=== PATIENT | female | born 1990 | race Caucasian/White ===

== ENCOUNTER 2018-05-22 22:07 | Inpatient (IN) | payer MEDICAID ==
[~2018-05-22 22:07] MED LIST: Bupivacaine 0.25% 10 ML SDV ONE; Lidocaine 1.5% with EPINEPHrine 1:200,000 5 ML Amp ONE
[2018-05-22] MEDS ORDERED: Ondansetron 4 MG/2 ML SDV IVPUSH PRN (22:59)
[2018-05-22] MEDS ORDERED: Nalbuphine 20 MG/ML 1 ML Syringe IVPUSH PRN (22:59)
[2018-05-22] MEDS ORDERED: Ampicillin 2 GM in Sodium Chloride 0.9% 100 ML IV ONE (22:59)
[2018-05-22] MEDS ORDERED: Sodium Chloride 0.9% 10 ML Syringe FLUSH PRN (22:59)
[2018-05-23] MEDS: Ampicillin 1 GM in Sodium Chloride 0.9% 100 ML IV SCH ×2 (03:05→11:29)
[2018-05-23] MEDS: Lactated Ringers 1,000 ML IV SCH ×4 (03:06→10:26)
[2018-05-23] MEDS ORDERED: diphenhydrAMINE 50 MG/ML SDV IVPUSH PRN (03:43)
[2018-05-23] MEDS ORDERED: fentaNYL/Bupivacaine-NS 2 MCG/ML-0.125%/PF 100 ML Bag EPIDUR ONE (03:43)
[2018-05-23] MEDS ORDERED: fentaNYL 100 MCG/2 ML SDV EPIDUR PRN (03:43)
[2018-05-23] MEDS: ePHEDrine 50 MG/ML SDV IVPUSH PRN ×4 (04:29→04:49)
--- NOTE | 2018-05-23 04:47 | PCM.PREANE ---
Preanesthetic Assessment - Anesthesia/Transfusion/Family Hx Anesthesia History: Prior Anesthesia Without Reaction Type of Anesthesia Reaction: Unknown Family History of Anesthesia Reaction: No Transfusion History: No Prior Transfusion(s) Intubation History: Unknown - Review of Systems General: No Symptoms Pulmonary: No Symptoms Cardiovascular: No Symptoms Gastrointestinal: No Symptoms Neurological: No Symptoms Other: Reports: None - Physical Assessment NPO Status Date: 05/22/18 NPO Status Time: 11:00 Pulse: 82 O2 Sat by Pulse Oximetry: 98 Height: 1.73 m Weight: 97.522 kg - Lab Values: Laboratory Last Values WBC 8.95 K/mm3 (3.98-10.04) 05/22/18 23:20 RBC 4.10 M/mm3 (3.98-5.22) 05/22/18 23:20 Hgb 11.0 gm/L (11.2-15.7) L 05/22/18 23:20 Hct 33.6 % (34.1-44.9) L 05/22/18 23:20 MCV 82.0 fl (79.4-94.8) 05/22/18 23:20 MCH 26.8 pg (25.6-32.2) 05/22/18 23:20 MCHC 32.7 g/dl (32.2-35.5) 05/22/18 23:20 RDW Std Deviation 39.0 fL (36.4-46.3) 05/22/18 23:20 Plt Count 249 K/mm3 (182-369) 05/22/18 23:20 MPV 10.8 fl (9.4-12.3) 05/22/18 23:20 Neut % (Auto) 77.5 % (34.0-71.1) H 05/22/18 23:20 Lymph % (Auto) 15.3 % (19.3-51.7) L 05/22/18 23:20 [place] % (Auto) 6.4 % (4.7-12.5) 05/22/18 23:20 Eos % (Auto) 0.3 (0.7-5.8) L 05/22/18 23:20 Baso % (Auto) 0.1 % (0.1-1.2) 05/22/18 23:20 Neut # (Auto) 6.93 K/mm3 (1.56-6.13) H 05/22/18 23:20 Lymph # (Auto) 1.37 K/mm3 (1.18-3.74) 05/22/18 23:20 [place]inger # (Auto) 0.57 K/mm3 (0.24-0.36) H 05/22/18 23:20 Eos # (Auto) 0.03 K/mm3 (0.04-0.36) L 05/22/18 23:20 Baso # (Auto) 0.01 K/mm3 (0.01-0.08) 05/22/18 23:20 - Allergies Allergies/Adverse Reactions: Allergies Allergy/AdvReac Type Severity Reaction Status Date / Time No Known Allergies Allergy Verified 05/22/18 22:18 PreAnesthesia Questionnaire - Past Health History Medical/Surgical History: Denies 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: - Past Surgical History HEENT Surgical History: Reports: None Cardiovascular Surgical History: Reports: None Respiratory Surgical History: Reports: None GI Surgical History: Reports: None Female Surgical History: Reports: None Male Surgical History: Reports: None Endocrine Surgical History: Reports: None Neurological Surgical History: Reports: None Musculoskeletal Surgical History: Reports: None Oncologic Surgical History: Reports: None Dermatological Surgical History: Reports: None - SUBSTANCE USE Smoking Status *Q: Former Smoker Tobacco Use Within Last Twelve Months: Cigarettes Second Hand Smoke Exposure: No Recreational Drug Use History: No - HOME MEDS Home Medications: Home Meds . [No Known Home Meds] 05/23/18 [History] - CURRENT (IN HOUSE) MEDS Current Meds: Current Medications Diphenhydramine HCl (Benadryl) 25 mg IVPUSH Q6H PRN PRN Reason: Pruritis Ephedrine Sulfate (Ephedrine Sulfate) 5 mg IVPUSH ONETIME PRN PRN Reason: Hypotension Fentanyl (Sublimaze) 100 mcg EPIDUR Q3H PRN PRN Reason: Pain Lactated Ringer's (Ringers, Lactated) 1,000 mls @ 100 mls/hr IV ASDIRECTED [facility] Last Admin: 05/23/18 03:06 Dose: 100 mls/hr Ampicillin Sodium 1 gm/ Sodium (Chloride) 100 mls @ 200 mls/hr IV Q4H [facility] Last Admin: 05/23/18 03:05 Dose: 200 mls/hr Oxytocin/Lactated Ringer's (Pitocin In Lr 10 Units/1,000 Ml) 10 unit in 1,000 mls @ 500 mls/hr IV .CONTINUOUS [facility] Nalbuphine HCl (Nubain) 10 mg IVPUSH Q2H PRN PRN Reason: pain Ondansetron HCl (Zofran) 4 mg IVPUSH Q4H PRN PRN Reason: Nausea/Vomiting Sodium Chloride (Saline Flush) 10 ml FLUSH ASDIRECTED PRN PRN Reason: Keep Vein Open Discontinued Medications Fentanyl/Bupivacaine HCl (Yhymhdmp-Znpfn-Ij 2 Mcg/Ml-0.125%) 100 ml EPIDUR ONETIME ONE Stop: 05/23/18 03:44 Ampicillin Sodium 2 gm/ Sodium (Chloride) 100 mls @ 200 mls/hr IV ONETIME ONE Stop: 05/22/18 23:28 Last Admin: 05/23/18 00:10 Dose: 200 mls/hr
--- NOTE | 2018-05-23 05:11 | PCM.POSTAN ---
POST ANESTHESIA ASSESSMENT - RESPIRATORY Respiratory Status: Respiratory Rate WNL - CARDIOVASCULAR CV Status: Low Blood Pressure - GASTROINTESTINAL GI Status: [place] - POST OP HYDRATION Hydration Status: Adequate & Stable
[2018-05-23] MEDS: Oxytocin/Lactated Ringers 10 UNIT/1,000 ML BAG IV SCH ×2 (06:25→08:25)
--- NOTE | 2018-05-23 06:46 | PCM.HP ---
H&P History of Present Illness - General Date of Service: 05/22/18 Admit Problem/Dx: Admission Diagnosis/Problem Admission Diagnosis/Problem Source of Information: Patient - History of Present Illness Initial Comments - Free Text/Narative: 27 year old at 36w6d presents in labor. SROM shortly after arrival. History of prior deliveries. Improves with: Reports: None Worsens with: Reports: None Associated Symptoms: Reports: No Other Symptoms - Related Data Allergies/Adverse Reactions: Allergies Allergy/AdvReac Type Severity Reaction Status Date / Time No Known Allergies Allergy Verified 05/22/18 22:18 Home Medications: Home Meds . 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: - Past Surgical History HEENT Surgical History: Reports: None Cardiovascular Surgical History: Reports: None Respiratory Surgical History: Reports: None GI Surgical History: Reports: None Female Surgical History: Reports: None Male Surgical History: Reports: None Endocrine Surgical History: Reports: None Neurological Surgical History: Reports: None Musculoskeletal Surgical History: Reports: None Oncologic Surgical History: Reports: None Dermatological Surgical History: Reports: None Social & Family History - Family History Family Medical History: Noncontributory - Tobacco Use Smoking Status *Q: Former Smoker Years of Tobacco use: 3 Packs/Tins Daily: 0.5 Used Tobacco, but Quit: Yes Month/Year Tobacco Last Used: 11/2017 Second Hand Smoke Exposure: No - Recreational Drug Use Recreational Drug Use: No H&P Review of Systems - Review of Systems: Review Of Systems: See Below General: Reports: No Symptoms HEENT: Reports: No Symptoms Pulmonary: Reports: No Symptoms Cardiovascular: Reports: No Symptoms Gastrointestinal: Reports: No Symptoms Genitourinary: Reports: No Symptoms Musculoskeletal: Reports: No Symptoms Skin: Reports: No Symptoms Psychiatric: Reports: No Symptoms Neurological: Reports: No Symptoms Hematologic/Lymphatic: Reports: No Symptoms Immunologic: Reports: No Symptoms Exam - Exam Exam: See Below - Vital Signs Vital Signs: Last Vital Signs Temp Pulse 82 05/23/18 04:47 Resp BP Pulse Ox 98 05/23/18 04:47 Weight: 97.522 kg - Exam General: Alert, Oriented, 4 HEENT: PERRLA, Hearing Intact, Mucosa Moist & [place], Nares Patent, Normal Nasal Septum, Posterior Pharynx Clear, Conjunctiva Clear, EOMI, EACs Clear, TMs Clear Neck: Supple, Trachea Midline, 2 Lungs: Clear to Auscultation, Normal Respiratory Effort Cardiovascular: Regular Rate, Regular Rhythm GI/Abdominal Exam: Normal Bowel Sounds, Soft, Non-Tender, No Organomegaly, No Distention, No Abnormal Bruit, No Mass, Pelvis Stable Back Exam: Normal Inspection, Full Range of Motion, NT Extremities: Normal Inspection, Normal Range of Motion, Non-Tender, No Pedal Edema, Normal Capillary Refill Skin: Warm, Dry, Intact Neurological: Cranial Nerves Intact, Reflexes Equal Bilateral Neuro Extensive - Mental Status: Alert, Oriented x3, Normal Mood/Affect, Normal Cognition Neuro Extensive - Motor, Sensory, Reflexes: CN II-XII Intact, Normal Gait, Normal Reflexes Psychiatric: Alert, Normal Affect, Normal Mood - Patient Data Lab Results Last 24 hrs: Laboratory Results - last 24 hr 05/22/18 Range/Units 23:20 WBC 8.95 (3.98-10.04) K/mm3 RBC 4.10 (3.98-5.22) M/mm3 Hgb 11.0 L (11.2-15.7) gm/L Hct 33.6 L (34.1-44.9) % MCV 82.0 (79.4-94.8) fl MCH 26.8 (25.6-32.2) pg MCHC 32.7 (32.2-35.5) g/dl RDW Std Deviation 39.0 (36.4-46.3) fL Plt Count 249 (182-369) K/mm3 MPV 10.8 (9.4-12.3) fl Neut % (Auto) 77.5 H (34.0-71.1) % Lymph % (Auto) 15.3 L (19.3-51.7) % Moore % (Auto) 6.4 (4.7-12.5) % Eos % (Auto) 0.3 L (0.7-5.8) Baso % (Auto) 0.1 (0.1-1.2) % Neut # (Auto) 6.93 H (1.56-6.13) K/mm3 Lymph # (Auto) 1.37 (1.18-3.74) K/mm3 Moore # (Auto) 0.57 H (0.24-0.36) K/mm3 Eos # (Auto) 0.03 L (0.04-0.36) K/mm3 Baso # (Auto) 0.01 (0.01-0.08) K/mm3 Result Diagrams: 05/22/18 23:20 Problem List Initiated/Reviewed/Updated: Yes Orders Last 24hrs: Active Orders 24 hr Category Date Time Status Patient Status [ADT] Routine ADT 05/22/18 22:59 Active Activity as Tolerated [RC] PFP Care 05/22/18 22:59 Active Bradycardia-Neuroaxis [facility] [RC] ROUTINE Care 05/23/18 05:08 Active Communication Order [RC] ASDIRECTED Care 05/22/18 22:59 Active Non Stress Test [RC] PER UNIT ROUTINE Care 05/22/18 22:18 Active Hypertension-Neuroaxis [employer] [RC] ROUTINE Care 05/23/18 05:08 Active Hypotension-Neuroaxis [employer] [RC] ROUTINE Care 05/23/18 05:08 Active Notify Provider [RC] ASDIRECTED Care 05/23/18 03:43 Active Notify Provider [RC] PFP Care 05/22/18 22:59 Active Notify Provider [RC] PRN Care 05/22/18 22:59 Active Peripheral IV Care [RC] . DIRECTED Care 05/22/18 22:59 Active Pump Management, Intrathecal [RC] ASDIRECTED Care 05/22/18 23:00 Active Vital Signs [RC] PER UNIT ROUTINE Care 05/22/18 22:18 Active GROUP B STREP BY PCR [MOLEC] Routine Lab 05/23/18 00:10 Received RAPID PLASMA REAGIN,RPR [CHEM] Routine Lab 05/22/18 23:20 Received Ampicillin 1 gm Med 05/23/18 03:00 Active Sodium Chloride 0.9% [Normal Saline] 100 ml IV Q4H Lactated Ringers [Ringers, Lactated] 1,000 ml Med 05/22/18 23:00 Active IV ASDIRECTED Nalbuphine [Nubain] Med 05/22/18 22:59 Active 10 mg IVPUSH Q2H PRN Ondansetron [Zofran] Med 05/22/18 22:59 Active 4 mg IVPUSH Q4H PRN Oxytocin/Lactated Ringers [Pitocin in LR 10 Units/1,000 Med 05/22/18 23:00 Active ML] 10 unit in 1,000 ml IV .CONTINUOUS Sodium Chloride 0.9% [Saline Flush] Med 05/22/18 22:59 Active 10 ml FLUSH ASDIRECTED PRN diphenhydrAMINE [Benadryl] Med 05/23/18 03:43 Active 25 mg IVPUSH Q6H PRN ePHEDrine [ePHEDrine sulfate] Med 05/23/18 03:43 Active 5 mg IVPUSH ONETIME PRN fentaNYL [Sublimaze] Med 05/23/18 03:43 Active 100 mcg EPIDUR Q3H PRN Electronic Heart Tones Ext w TOCO [WOMSER] Oth 05/22/18 22:59 Ordered Routine Electronic Heart Tones Internal [WOMSER] Per Unit Oth 05/22/18 22:59 Ordered Routine Peripheral IV Insertion Adult [OM.PC] Routine Oth 05/22/18 22:59 Ordered Resuscitation Status Routine Resus Stat 05/22/18 22:18 Ordered Medication Orders Diphenhydramine HCl (Benadryl) 25 mg IVPUSH Q6H PRN PRN Reason: Pruritis Ephedrine Sulfate (Ephedrine Sulfate) 5 mg IVPUSH ONETIME PRN PRN Reason: Hypotension Last Admin: 05/23/18 04:49 Dose: 5 mg Admin: 05/23/18 04:38 Dose: 5 mg Admin: 05/23/18 04:34 Dose: 5 mg Admin: 05/23/18 04:29 Dose: 5 mg Fentanyl (Sublimaze) 100 mcg EPIDUR Q3H PRN PRN Reason: Pain Lactated Ringer's (Ringers, Lactated) 1,000 mls @ 100 mls/hr IV ASDIRECTED [facility] Last Admin: 05/23/18 05:16 Dose: 100 mls/hr Infusion: 05/23/18 05:16 Dose: 100 mls/hr Admin: 05/23/18 04:44 Dose: 100 mls/hr Infusion: 05/23/18 04:44 Dose: 100 mls/hr Admin: 05/23/18 03:06 Dose: 100 mls/hr Ampicillin Sodium 1 gm/ Sodium (Chloride) 100 mls @ 200 mls/hr IV Q4H [facility] Last Admin: 05/23/18 03:05 Dose: 200 mls/hr Oxytocin/Lactated Ringer's (Pitocin In Lr 10 Units/1,000 Ml) 10 unit in 1,000 mls @ 500 mls/hr IV .CONTINUOUS [facility] Nalbuphine HCl (Nubain) 10 mg IVPUSH Q2H PRN PRN Reason: pain Ondansetron HCl (Zofran) 4 mg IVPUSH Q4H PRN PRN Reason: Nausea/Vomiting Sodium Chloride (Saline Flush) 10 ml FLUSH ASDIRECTED PRN PRN Reason: Keep Vein Open Assessment/Plan Comment:: 27 year old here with labor. No prior GBS collected so will treat.
--- NOTE | 2018-05-23 06:52 | PCM.SN ---
- Free Text/Narrative Note: Stage I - Patient presented in active labor. Progressed to complete with overall reassuring FHT. Epidural. Antibiotics for GBS unknown and . Stage II - of viable female, weight 2780, APGARS 8/9 at 0621. Head delivered in controlled manner over intact perinuem. body and shoulders followed without difficulty. Positive cry. To maternal abdomen. Cord clamped and cut. Stage III - of intact placenta. 3VC. No lacerations. EBL 200
[2018-05-23] MEDS ORDERED: Docusate Sodium 100 MG Cap PO PRN (09:22)
[2018-05-23] MEDS ORDERED: Lanolin 100% Cream 7 GM Tube TOP PRN (09:22)
[2018-05-23] MEDS ORDERED: Acetaminophen 325 MG Tab PO PRN (09:22)
[2018-05-23] MEDS: Ibuprofen 600 MG Tab PO PRN ×2 (09:43→20:58)
[2018-05-23] MEDS: Acetaminophen/Butalbital/Caffeine 325-50-40 MG Tab PO PRN ×2 (10:04→15:33)
[2018-05-23] MEDS: Acetaminophen/Butalbital/Caffeine 325-50-40 MG Tab PO SCH (20:58)
[2018-05-24] MEDS: Acetaminophen/Butalbital/Caffeine 325-50-40 MG Tab PO SCH ×5 (00:47→15:43)
[2018-05-24] MEDS: Ibuprofen 600 MG Tab PO PRN ×2 (07:47→18:22)
--- NOTE | 2018-05-25 09:46 | PCM.DCSUM1 ---
Discharge Summary - Hospital Course Diagnosis: Stroke: No - Discharge Data Discharge Date: 05/25/18 Discharge Disposition: Home, Self-Care 01 Condition: Good - Patient Instructions Diet: Usual Diet as Tolerated Activity: As Tolerated, No Strenuous Activities Driving: May Drive Today Showering/Bathing: May Shower Notify Provider of: Fever, Increased Pain, Swelling and Redness, Drainage, Nausea and/or Vomiting - Discharge Plan *PRESCRIPTION DRUG MONITORING PROGRAM REVIEWED*: No *COPY OF PRESCRIPTION DRUG MONITORING REPORT IN PATIENT CLAUDIA: No Home Medications: Home Meds . [No Known Home Meds] 05/23/18 [History] Patient Handouts: Home Care Instructions for Mom - Discharge Summary/Plan Comment DC Time >30 min.: No - General Info Date of Service: 05/25/18 - Review of Systems General: Reports: No Symptoms HEENT: Reports: No Symptoms Pulmonary: Reports: No Symptoms Cardiovascular: Reports: No Symptoms Gastrointestinal: Reports: No Symptoms Genitourinary: Reports: No Symptoms Musculoskeletal: Reports: No Symptoms Skin: Reports: No Symptoms Neurological: Reports: No Symptoms Psychiatric: Reports: No Symptoms - Patient Data Vitals - Most Recent: Last Vital Signs Temp 36.6 C 05/25/18 02:41 Pulse 57 L 05/25/18 02:41 Resp 16 05/25/18 02:41 BP 109/65 05/25/18 02:41 Pulse Ox 98 05/25/18 02:41 Weight - Most Recent: 97.522 kg Lab Results - Last 24 hrs: Laboratory Results - last 24 hr 05/23/18 Range/Units 00:10 Group B Strep (PCR) Negative (NEGATIVE) Med Orders - Current: Current Medications Acetaminophen (Tylenol) 650 mg PO Q4H PRN PRN Reason: mild pain or fever Docusate Sodium (Colace) 100 mg PO BID PRN PRN Reason: Constipation Emollient Ointment (Lansinoh Hpa) 0 gm TOP ASDIRECTED PRN PRN Reason: Sore Nipples Ibuprofen (Motrin) 600 mg PO Q4H PRN PRN Reason: Mild pain or fever Last Admin: 05/24/18 18:22 Dose: 600 mg Discontinued Medications Acetaminophen/Butalbital/Caffeine (Fioricet 325-50-40 Mg) 1 tab PO Q4H PRN PRN Reason: Headache Last Admin: 05/23/18 15:33 Dose: 1 tab Acetaminophen/Butalbital/Caffeine (Fioricet 325-50-40 Mg) 1 tab PO Q4H [facility] Last Admin: 05/24/18 15:43 Dose: Not Given Bupivacaine HCl (Sensorcaine-Mpf 0.25%) 10 ml .ROUTE .STK-MED ONE Stop: 05/22/18 22:01 Diphenhydramine HCl (Benadryl) 25 mg IVPUSH Q6H PRN PRN Reason: Pruritis Ephedrine Sulfate (Ephedrine Sulfate) 5 mg IVPUSH ONETIME PRN PRN Reason: Hypotension Last Admin: 05/23/18 04:49 Dose: 5 mg Fentanyl (Sublimaze) 100 mcg EPIDUR Q3H PRN PRN Reason: Pain Fentanyl/Bupivacaine HCl (Oqtiijyy-Mtizl-Ky 2 Mcg/Ml-0.125%) 100 ml EPIDUR ONETIME ONE Stop: 05/23/18 03:44 Last Admin: 05/23/18 11:25 Dose: Not Given Ampicillin Sodium 2 gm/ Sodium (Chloride) 100 mls @ 200 mls/hr IV ONETIME ONE Stop: 05/22/18 23:28 Last Admin: 05/23/18 00:10 Dose: 200 mls/hr Lactated Ringer's (Ringers, Lactated) 1,000 mls @ 100 mls/hr IV ASDIRECTED [facility] Last Admin: 05/23/18 10:26 Dose: 500 mls/hr Ampicillin Sodium 1 gm/ Sodium (Chloride) 100 mls @ 200 mls/hr IV Q4H [facility] Last Admin: 05/23/18 11:29 Dose: Not Given Oxytocin/Lactated Ringer's (Pitocin In Lr 10 Units/1,000 Ml) 10 unit in 1,000 mls @ 500 mls/hr IV .CONTINUOUS [facility] Last Admin: 05/23/18 08:25 Dose: 999 mls/hr Lidocaine/Epinephrine (Xylocaine-Mpf 1.5% W/Epinephrine 1:200,000) 5 ml .ROUTE .STK-MED ONE Stop: 05/22/18 22:01 Nalbuphine HCl (Nubain) 10 mg IVPUSH Q2H PRN PRN Reason: pain Ondansetron HCl (Zofran) 4 mg IVPUSH Q4H PRN PRN Reason: Nausea/Vomiting Sodium Chloride (Saline Flush) 10 ml FLUSH ASDIRECTED PRN PRN Reason: Keep Vein Open - Exam General: Reports: Alert, Oriented HEENT: Reports: Pupils Equal, Pupils Reactive, EOMI, Mucous Membr. Moist/[place] Neck: Reports: Supple Lungs: Reports: Clear to Auscultation, Normal Respiratory Effort Cardiovascular: Reports: Regular Rate, Regular Rhythm GI/Abdominal Exam: Normal Bowel Sounds, Soft, Non-Tender, No Organomegaly, No Distention, No Abnormal Bruit, No Mass, Pelvis Stable Back Exam: Reports: Normal Inspection, Full Range of Motion Extremities: Normal Inspection, Normal Range of Motion, Non-Tender, No Pedal Edema, Normal Capillary Refill Skin: Reports: Warm, Dry, Intact Wound/Incisions: Reports: Healing Well Neurological: Reports: No New Focal Deficit Psy/Mental Status: Reports: Alert, Normal Affect, Normal Mood
== END 2018-05-25 09:49 | disposition home or self-care (01) | DRG 807 ==
LOC: JD.OBCHECK 22:07 → JD.OB 22:07 → JD.OBCHECK 22:58 → JD.OB 22:59 → OBSVTOIN 05-23 06:21 → JD.OB 05-23 06:22
PROVIDERS: ADMIT Obstetrics & Gynecology; ATTEND Obstetrics & Gynecology
PROC: 10E0XZZ Delivery of Products of Conception, External Approach (ICD-10-PCS; principal; 2018-05-23)
PROC: 3E0R3BZ Introduction of Anesthetic Agent into Spinal Canal, Percutaneous Approach (ICD-10-PCS; 2018-05-23)
PROC: 00HU33Z Insertion of Infusion Device into Spinal Canal, Percutaneous Approach (ICD-10-PCS; 2018-05-23)
DX: O60.14X0 Preterm labor third trimester with preterm delivery third trimester, not applicable or unspecified (principal); Z37.0 Single live birth; Z3A.36 36 weeks gestation of pregnancy; Z87.891 Personal history of nicotine dependence
CPT/HCPCS: 36415; 51701; 59025; 59409; 85025; 86592; 87653; A9270-GY; J0290; J2590; J3490; J7030; J7120